=== PATIENT | male | born 1960 | race Caucasian/White ===

== ENCOUNTER → 2017-09-30 | Outpatient (CLI) | payer OTHER ==
--- NOTE | 2017-10-01 09:01 | CT ---
EXAMINATION TYPE: CT angio thoracic/abd aorta DATE OF EXAM: 09/30/2017 COMPARISON: NONE at this location. HISTORY: Thoracic aortic aneurysm follow-up. History of repair. CT DLP: 890.4 mGycm, Automated exposure control for dose reduction was used. CONTRAST: Performed injected with 100 mL of Omnipaque 350. TECHNIQUE: Axial images were obtained at 5 mm thick sections. Reconstructed images are reviewed on t computer in the coronal plane. Three-D reconstructed images performed separately on the [employer] puter by the technologist are presented for review. FINDINGS: Portion of the thyroid visualized is normal. No suspicious lung nodules or focal infiltrates are present. No enlarged mediastinal or hilar adenopathy is evident. The ascending aorta diameter at the level o f the main pulmonary artery is 2.8 cm. The main pulmonary artery diameter at the bifurcation is 2.9 cm. Above the main pulmonary artery within the aorta is the beginning of the dissection this extends to t he aortic arch and continues to the descending thoracic aorta. Passing through the diaphragm the diss ection continues with a lumen with contrast feeding the right common iliac artery and the second port ion of the contrast lumen feeding the left common iliac artery. Superior mesenteric celiac and right renal artery comes from one half of the dissection with the left renal artery from the larger portion of the dissection. There is widening of the aortic arch measuring 3.5 cm. The AP dimension of the proximal descending th oracic aorta is 3.9 cm. The aorta remains prominent measuring 4.2 cm at the level of the diaphragm. T he oblique dimension of the mid abdominal aorta, which contains the dissection is 3.3 cm. The aorta j ust above the bifurcation is dilated at 3.4 cm. Common iliac arteries which do not have dissection in volvement measure 1.6 cm on the right and 2.0 cm on the left. Iliac arteries bifurcate internal and e xternal iliac vessels. The common femoral arteries and proximal fundus of Jose superficial femoral arteries appear normal. 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 At this phase of contrast the liver or spleen pancreas adrenal glands and kidneys and gallbladder francisco ear unremarkable. The bowel without contrast appear unremarkable. Urinary bladder is unremarkable. Pr ostate appears normal. Inferior vena cava is unremarkable. IMPRESSIONS: 1. DeBakey type III aortic dissection with contrast within both lumen and dissection channel.
== END | disposition home or self-care (01) ==
LOC: RADCTMAIN 16:39
PROVIDERS: ATTEND Thoracic Surgery (Cardiothoracic Vascular Surgery)
DX: I71.00 Dissection of unspecified site of aorta (principal)
CPT/HCPCS: 75635; 71275; Q9967